=== PATIENT | female | born 1965 | race Caucasian/White ===

== ENCOUNTER 2021-07-27 00:41 | Day surgery (SDC) | payer OTHER, SELFPAY ==
[2021-07-23 15:41] VITALS: BMI 20.5
--- NOTE | 2021-07-23 15:47 | PC.NURSE ---
Report to the Outpatient Waiting Room, entrance under the green pavilion located off [facility], at time 1000 on date 07/27/21. OR Time: 1200. - You and your visitor will be asked a series of questions to screen for COVID 19 for your protection. - A mask is required within the hospital. One visitor will be allowed to accompany the patient into the hospital. Patients visitor will be instructed to remain with patient at all times or leave the building. We will allow the visitor to come back to the postoperative area when patient is ready. Preoperative COVID Testing Requirements: PT TO E-MAIL COPY OF CARD No COVID Test needed if: (proof is required; if not received patient will have Rapid Test prior to entry) - Patient has received COVID Vaccine at least 14 days prior to procedure date or - Patient has positive COVID test result within last 90 days of surgery date. COVID Test needed if above criteria is not met Patients may have clear liquids (water, carbonated beverages, clear teas, apple juice) until 3 hours prior to surgery with a maximum of 20 ounces. - No food from midnight until time of surgery Take the following medications with a SIP of water the morning of surgery: LEXAPRO Medications to discontinue per physician: N/A Date to take last dose: N/A Please no make-up, nail urdu, hairspray, perfume, deodorant, or body powder the day of surgery. No jewelry (including any body piercings) or valuables the day of surgery, leave them at home. Please take a shower or bath the night before, or the morning of, surgery with an antibacterial soap. Wear comfortable, loose fitting clothing. - Jewelry must be removed prior to entering the operating room. Rings and piercings that are not removed may be cut off. - The hospital will not accept responsibility for valuables. - Please leave all valuables, including medications, at home the day of surgery. If you are going home after surgery, a licensed class a regional drivers must drive you home. - NO public transportation without another adult. - We recommend that an adult stay with you for 24 hours following discharge. - We also recommend that you do not drive, make important decision, drink alcoholic beverages, or take any drugs that were not prescribed by your health care provider for at least 24 hours after your discharge time. Follow any additional instructions given to you from your surgeon. Telephone instructions given to GERARDO HARMAN and asked if any additional questions and then verbalized understanding. Patient advised to call surgeon office or pre surgery nurse liaison [phone] if any additional questions.
[2021-07-27] VITALS (9 sets, daily range): BP systolic 102–124; BP diastolic 66–80; PULSE 73–97; RESP 12–18; TEMP 36.1–36.6; O2SAT 98–100
--- NOTE | 2021-07-27 06:24 | W.PM.PROC2 ---
Procedure Note - Detailed Date of Procedure 07/27/21 Pre-op Diagnosis skin laxity Post-op Diagnosis Same Procedure Performed Facial rhytidectomy with facial fat grafting Surgeon Supa Mace MD Anesthesia General Findings Facial fat grafting Right infraorbital - 3 cc malar - 4.5 cc catholic - 2cc nasolabial fold 0.5cc Left infraorbital - 3 cc malar - 5.5 cc catholic - 2cc nasolabial fold 0.5cc Description of Procedure Preoperatively the risks, benefits, alternatives were again today discussed in extensive detail. I want her to be very realistic about the risks involved as well as expectations. I was very up front honest about we we could and could not accomplish. Want to be clear about the limitations of the procedure. All questions were answered to her satisfaction today. She voiced a clear understanding. Consent was obtained. She was marked in the preoperative holding area. She was taken to the operating room placed supine on the operating room table. Anesthesia provided by anesthesiology and prepped and draped in a standard sterile fashion. Surgical time-out was taken. Thorough abdominal examination was completed in no hernias were palpable. Stab incision was made and I tumesced with a tumescent solution. Once adequate time for hemostasis I completed suction lipectomy using a 3 mm multi hole fat grafting cannula to a gravity separation device. We allowed adequate time for gravity separation and then transferred the adipose tissue to 1 cc syringes . I only used the central portion of optimal adipose tissue. Using 18 gauge needle access points were utilized for the face and fat grafting was completed in the volumes as described above based her preoperative concerns and planning. Once completed I made stab incision preauricular bilateral. I then used a tumescent solution in order provide tumescence of the face for planned flap elevation. Fifteen blade used to make a preauricular post tragal incision as necessary in order to gain access. The flap was elevated just superficial to the smash providing good adipose tissue in vascularity. I elevated just was necessary in order to provide good exposure. I then plicated the smash using 2-0 Vicryl in several layers in order to ensure good contour. I then closed preauricular with 5 0 nylon. In hairline with radha. Postauricular with 5 0 chromic. Dressings were placed. She was awoke and taken the PACU without difficulty. All instrument sponge counts were correct in the case. Estimated Blood Loss 25 Drains No Packing No Pathology None sent Complications No immediate complications Condition Stable Disposition PACU
[2021-07-27] MEDS: LACTATED RINGERS 1,000 ML 30 ML IV CONT ×2 (06:30→11:00)
[2021-07-27 06:48] LABS: Urine Cotinine NEGATIVE
--- NOTE | 2021-07-27 07:09 | WPDHPUPDATE1 ---
History and Physical Update Update Date/Time: 07/27/21 07:09 History and Physical has been reviewed, including an updated exam of the patient. There are NO changes in the patient's condition. Patient states she would like to go home post-op and has good care at home. Risks, benefits, and alternatives have been discussed and questions answered. Patient agrees to proceed with procedure.
--- NOTE | 2021-07-27 07:19 | WPDANESEPPF ---
Anes - Initial Pre Proc Eval Procedure: Operation Date: 07/27/21 07:30 Proposed Procedures p Face Lift, - Supa Mace MD s Facial Fat Grafting - Supa Mace MD Date/Time: 07/27/21 07:19 Surgeon: Supa Mace MD Pre Op Diagnosis: skin laxity Patient Data Age: 55 Gender: F Height: 1.63 m Weight: 57 kg Last Vital Signs Temp 96.9 F L 07/27/21 06:06 Pulse 73 07/27/21 06:06 Resp 16 07/27/21 06:06 BP 120/75 07/27/21 06:06 Pulse Ox 99 07/27/21 06:06 Allergies Allergy/AdvReac Type Severity Reaction Status Date / Time erythromycin base Allergy Mild Abdominal Verified 07/27/21 06:16 Pain Home Medications Medication Instructions Recorded Confirmed Type escitalopram oxalate 20 mg tablet 20 mg PO DAILY 06/14/20 07/27/21 History docusate sodium 100 mg capsule 100 mg PO DAILY #14 cap 07/09/21 07/27/21 Rx oxycodone-acetaminophen 5 mg-325 1 tablet PO Q6H PRN #30 tablet 07/11/21 07/27/21 Rx mg tablet multivitamin 1 cap PO DAILY 07/27/21 07/27/21 History Laboratory Tests 07/27/21 06:10 Cotinine Negative Patient hx anesthesia problems: none Family hx anesthesia problems: none Results Review: All pre-operative results and documents have been reviewed as part of the pre-operative evaluation. [facility] Social History Social History Smoking status: Never smoker Second hand tobacco smoke exposure: No Alcohol intake: current Drinks per week: 3 Substance use: never Substance use type: does not use Living arrangements: with family Spiritual care concerns: No Anes - Eval Final PreProcedure Day of Procedure 07/27/21 07:19 Patient weight: normal Heart: regular rate and rhythm Lungs: clear to auscultation Airway: Mallampati scale class II Neurological: alert and oriented Last oral intake: >/= 8 hours ASA classification: II Emergent: no Anesthetic plan: proceed Anesthesia type and monitoring: general ETT and standard monitoring Results Review: All pre-operative results and documents have been reviewed as part of the pre-operative evaluation. Informed Consent: The patient's anesthetic plan and its attendant risks and benefits were discussed with the patient/family/POA. Questions were solicited and answers provided to the satisfaction of the patient/family/POA.
[2021-07-27] MEDS: SCOPOLAMINE 1.5 MG PATCH TRANSDERM (07:28)
[2021-07-27] MEDS: ceFAZolin 2 GM/D5W 50 ML 2 GM/50 ML BAG IVPB (07:30)
[2021-07-27] MEDS: TRANEXAMIC ACID 1,000MG/ISO100 1,000 MG/100 ML BAG 200 MG IVPB (07:40)
[2021-07-27] MEDS: ONDANSETRON INJ 4 MG/2 ML VIAL IV PUSH (11:33)
== END 2021-07-27 12:58 | disposition home or self-care (01) ==
PROVIDERS: PCP Pediatrics; Visit Provider Surgery Plastic and Reconstructive Surgery
PROC: (CPT 15824; principal; 2021-07-27 07:30)
PROC: (CPT 15769; 2021-07-27 07:30)
DX: Z41.1 Encounter for cosmetic surgery (principal); L57.4 Cutis laxa senilis; Z79.899 Other long term (current) drug therapy
CPT/HCPCS: 15829; 15773; 80307; A9270; C9290; J0171; J0690; J1100; J2250; J2405; J2704; J7030; J7120; Q9968